=== PATIENT | male | born 1960 | race Asian ===

== ENCOUNTER 2020-07-12 15:15 | Outpatient (REF) | payer OTHER, SELFPAY | END 2020-07-12 15:16 | disposition home or self-care (01) | LOC: HO.LAB 15:15 | PROVIDERS: PCP Internal Medicine; Visit Provider Internal Medicine | DX: Z20.828 Contact with and (suspected) exposure to other viral communicable diseases (principal) | CPT/HCPCS: 87635 ==

== ENCOUNTER 2020-07-29 10:04 | Outpatient (REF) | payer OTHER, SELFPAY | END 2020-07-29 10:05 | disposition home or self-care (01) | LOC: HO.LAB 10:04 | PROVIDERS: Visit Provider Internal Medicine | DX: Z20.828 Contact with and (suspected) exposure to other viral communicable diseases (principal) | CPT/HCPCS: C9803; U0003 ==

== ENCOUNTER 2020-08-30 11:28 | Outpatient (REF) | payer OTHER, SELFPAY | END 2020-08-30 11:29 | disposition home or self-care (01) | LOC: HO.LAB 11:28 | PROVIDERS: Visit Provider Internal Medicine | DX: Z20.828 Contact with and (suspected) exposure to other viral communicable diseases (principal) | CPT/HCPCS: C9803; U0003 ==

== ENCOUNTER → 2023-11-08 11:57 | Outpatient (BNVA) | payer OTHER, SELFPAY | PROVIDERS: PCP Internal Medicine; Visit Provider Internal Medicine | DX: S83.92XA Sprain of unspecified site of left knee, initial encounter (principal); X50.1XXA Overexertion from prolonged static or awkward postures, initial encounter | CPT/HCPCS: 99202 ==

== ENCOUNTER → 2023-11-20 09:49 | Outpatient (BNVA) | payer OTHER, SELFPAY | PROVIDERS: PCP Internal Medicine; Visit Provider Internal Medicine | DX: S83.92XD Sprain of unspecified site of left knee, subsequent encounter (principal); X50.1XXD Overexertion from prolonged static or awkward postures, subsequent encounter | CPT/HCPCS: 73564; 99213 ==

== ENCOUNTER 2023-11-27 11:00 | Outpatient (RCR) | payer OTHER, SELFPAY ==
--- NOTE | 2023-11-22 12:30 | MHC.PT.EP ---
[facility] [place] Office [place] Office [place] Office [address] Cynthia Pulido [address] [phone] F: [phone] F: [phone] F: [phone] F: [phone] Physical Therapy Plan of Care Date of Evaluation: 11/22/23 Date of Surgery: N/A Diagnosis: left knee injury (RL) Assessment: pt is a 63 y/o male presenting to physical therapy w/ referring diagnosis of left knee injury. I suspect he has an MCL and/or LCL sprain(s). Impairments include pain, decreased range of motion, decreased strength, impaired functional mobility, impaired postural awareness, and altered ambulation mechanics. pt is a good candidate for skilled PT due to age, potential remediation of impairments, typical disease/condition progression and prognosis, comorbidities, and motivation. pt would benefit from skilled PT intervention to provide a tailored strengthening and stretching exercise program, functional training, gait training, postural re-training, neuromuscular re-education, modalities as needed for pain, equipment safety demonstration. Frequency and Duration: The patient will be seen 2x/wk for 4 wks Short Term Goals: pt will be I w/ HEP to promote self-management of condition. pt will improve L knee flexion by at least 10 degrees to promote ease in squatting. 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 pt will demo proper lifting mechanics w/o verbal cueing for 25-40# x5 reps to promote return to work-related tasks. Treatment Plan: Modalities to reduce pain, spasms and effusion. Manual therapy to restore motion and function. Therapeutic exercise to improve strength and flexibility. Neuromuscular re-education for posture and balance. Therapeutic activities to return to functional activities of daily living. Electronically signed by: Elaine Lao PT, DPT Please sign and return to therapist. Thank you for your referral.
--- NOTE | 2024-01-09 11:37 | MHC.PT.DC ---
[facility] [place] Office [place] Office [place] Office [address] Cynthia Pulido 140 [facility] [phone] F: [phone] F: [phone] F: [phone] F: [phone] Physical Therapy Discharge Report Diagnosis: left knee injury (RL) Date of Surgery: N/A Date of Evaluation: 11/22/23 Date of Discharge: 01/09/24 Treatments to Date: 2 Cancellations to Date: 8 No Shows to Date: 0 Discharge Status: Improved Function Independent with HEP Discharge Summary: The patient feels his knee pain is nearly completely resolved. He does also experience occasional stiffness but feels his exercise program addresses this. He would like to be discharged from this physical therapy plan of care. Electronically signed by: Elaine Lao PT, DPT Please sign and return to therapist. Thank you for your referral.
== END 2024-01-09 11:37 | disposition home or self-care (01) ==
LOC: HO.PT 11:00
PROVIDERS: PCP Internal Medicine; Visit Provider Internal Medicine
DX: M23.92 Unspecified internal derangement of left knee (principal)
CPT/HCPCS: 97110; 97161

== ENCOUNTER → 2023-12-04 08:36 | Outpatient (BNVA) | payer OTHER, SELFPAY | PROVIDERS: PCP Internal Medicine; Visit Provider Internal Medicine | DX: M23.92 Unspecified internal derangement of left knee (principal) | CPT/HCPCS: 99213 ==

== ENCOUNTER → 2023-12-13 10:06 | Outpatient (BNVA) | payer OTHER, SELFPAY | PROVIDERS: PCP Internal Medicine; Visit Provider Internal Medicine | DX: M23.92 Unspecified internal derangement of left knee (principal) | CPT/HCPCS: 99213 ==

== ENCOUNTER → 2024-01-06 08:32 | Outpatient (BNVA) | payer OTHER, SELFPAY | PROVIDERS: PCP Internal Medicine; Visit Provider Internal Medicine | DX: S83.92XD Sprain of unspecified site of left knee, subsequent encounter (principal); X50.1XXD Overexertion from prolonged static or awkward postures, subsequent encounter; M23.92 Unspecified internal derangement of left knee | CPT/HCPCS: 99213 ==

== ENCOUNTER → 2024-01-17 09:00 | Outpatient (BNVA) | payer OTHER, SELFPAY | PROVIDERS: PCP Internal Medicine; Visit Provider Internal Medicine | DX: S83.92XD Sprain of unspecified site of left knee, subsequent encounter (principal); X50.1XXD Overexertion from prolonged static or awkward postures, subsequent encounter; R22.42 Localized swelling, mass and lump, left lower limb | CPT/HCPCS: 99213 ==

== ENCOUNTER 2024-02-03 10:56 | Outpatient (AMB) | payer OTHER, SELFPAY ==
--- NOTE | 2024-02-03 11:06 | MHC.OFFVIS ---
Vital Signs 02/03/24 11:26 Height 6 ft Weight 165 lb BMI 22.4 Intake Visit Reasons: L Knee internal derangement DOI 11/07/23. W/C Intake Note: Foster is a 63 year old male who presents as a new patient with Left knee pain and giving way. The patient describes his knee pain as sharp and severe in nature. Most of the pain is along the medial and posterior aspects of his knee. The patient states that injured his knee while working on 11/07/2023. The patient states that he was getting out of a truck when he twisted his knee and had acute onset of pain. The patient has been going to formal physical therapy which aggravated his pain. He has failed the last 6 weeks of conservative treatment. He has tried Tylenol, anti-inflammatory medicines and a knee brace which gave him minimal relief. He states that his left knee will give out several times per day. 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 Physical Exam Vital Signs: BMI result Body Mass Index 22.4 Const Other: Well-nourished well-developed very friendly male awake alert and oriented x3 in no acute distress Extrem Other: Bilateral lower extremity examination shows good capillary refill, no skin lesions noted, normal sensation light touch Left knee examination shows a minimal effusion, minimal crepitus with range of motion, tenderness along his medial joint line, positive Justen's test, no instability Results Reviewed Results Reviewed: Standing full weight-bearing x-rays of the patient's left knee show mild joint space narrowing, no acute bony abnormalities Assessment & Plan Assessment & Plan (1) Left knee pain: Code(s): M25.562 - Pain in left knee Category: Medical Plan Mr. Rogers presents with left knee pain and mechanical symptoms most likely due to a tear of his medial meniscus. Thus, I will send the patient for an MRI of his left knee for further evaluation. I will see him back once the MRI is completed to discuss the findings and treatment options. Feel free to call me at any time should questions regarding his orthopedic management arise. Thank you very much for asking me to see this very friendly patient. I spent 22 minutes in reviewing the patient's records and imaging studies, seeing the patient and documenting in the medical record. Orders: Orders XR knee LT 3V Today M25.562 - Pain in left knee MR knee LT wo con Today M25.562 - Pain in left knee Coding Level of Care Code New Pt Level 3 (76320) Diagnoses Left knee pain M25.562
[2024-02-03 11:26] VITALS: BMI 22.4
== END 2024-02-03 11:43 | disposition home or self-care (01) ==
PROVIDERS: PCP Internal Medicine; Visit Provider Orthopaedic Surgery
DX: M25.562 Pain in left knee (principal); Z04.2 Encounter for examination and observation following work accident
CPT/HCPCS: 99203

== ENCOUNTER 2024-02-03 10:56 | Outpatient (REF) | payer OTHER, SELFPAY ==
--- NOTE | ~2024-02-03 | XR_ITS ---
EXAMINATION: XR KNEE, LEFT CLINICAL INFORMATION: Pain in the left knee COMPARISON: X-ray the left knee November 2023 TECHNIQUE: Four views of the left knee. FINDINGS: Medial compartment small marginal osteophytes without joint space narrowing indicative of mild osteoarthritis. Lateral compartment and patellofemoral compartment unremarkable. There is no effusion. Surrounding bone and soft tissues unremarkable. XR/XR knee LT 3V IMPRESSION: Mild osteoarthritis of the left knee.
== END 2024-02-03 10:57 | disposition home or self-care (01) ==
LOC: HO.HOSX 10:56
PROVIDERS: PCP Internal Medicine; Visit Provider Orthopaedic Surgery
DX: M25.562 Pain in left knee (principal)
CPT/HCPCS: 73562; 99202

== ENCOUNTER 2024-02-25 11:20 | Outpatient (AMB) | payer OTHER, SELFPAY ==
--- NOTE | 2024-02-25 11:39 | MHC.OFFVIS ---
Vital Signs 02/25/24 11:45 Height 6 ft Weight 165 lb BMI 22.4 Intake Visit Reasons: MRI Review - Left Knee Rayus Intake Note: Foster is a 63 year old male who presents with Left knee pain and giving way. The patient describes his knee pain as sharp and severe in nature. Most of the pain is along the medial and posterior aspects of his knee. The patient states that injured his knee while working on 11/07/2023. The patient states that he was getting out of a truck when he twisted his knee and had acute onset of pain. The patient has been going to formal physical therapy which aggravated his pain. He has failed the last 6 weeks of conservative treatment. He has tried Tylenol, anti-inflammatory medicines and a knee brace which gave him minimal relief. He states that his left knee will give out several times per day. 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 Physical Exam Vital Signs: BMI result Body Mass Index 22.4 Const Other: Well-nourished well-developed very friendly male awake alert and oriented x3 in no acute distress Extrem Other: Bilateral lower extremity examination shows good capillary refill, no skin lesions noted, normal sensation light touch Left knee examination shows a minimal effusion, minimal crepitus with range of motion, tenderness along his medial joint line, positive Justen's test, no instability Results Reviewed Results Reviewed: Standing full weight-bearing x-rays of the patient's left knee shows mild joint space narrowing, no acute bony abnormalities MRI of the patient's left knee shows mild degenerative changes as well as a tear of the medial meniscus Assessment & Plan Assessment & Plan (1) Tear of medial meniscus of left knee: Code(s): S83.242A - Other tear of medial meniscus, current injury, left knee, initial encounter Category: Medical Plan Mr. Rogers presents with left knee pain and mechanical symptoms due to a tear of his medial meniscus. I had a lengthy discussion with the patient regarding the treatment options. At this point he has failed continued non operative treatments. The risks and benefits of left knee arthroscopic surgery were discussed at length with the patient. The patient wishes to proceed with surgery. Surgery will most likely involve left knee diagnostic arthroscopy with arthroscopic partial medial meniscectomy. The patient does understand that he may not get 100% relief of his symptoms depending on the severity of his degenerative changes. He will be scheduled for next available date. He will follow-up as instructed. Feel free to call me at any time should questions regarding his orthopedic management arise. I spent 22 minutes in reviewing the patient's records and imaging studies, seeing the patient and documenting in the medical record. Coding Level of Care Code Est Pt Level 3 (41809) Diagnoses Tear of medial meniscus of left knee S83.242A
[2024-02-25 11:45] VITALS: BMI 22.4
== END 2024-02-25 12:01 | disposition home or self-care (01) ==
PROVIDERS: PCP Internal Medicine; Visit Provider Orthopaedic Surgery
DX: S83.242A Other tear of medial meniscus, current injury, left knee, initial encounter (principal)
CPT/HCPCS: 99214

== ENCOUNTER → 2024-02-25 11:20 | Outpatient (BNVA) | payer OTHER, SELFPAY | PROVIDERS: PCP Internal Medicine; Visit Provider Orthopaedic Surgery | DX: M25.562 Pain in left knee (principal); S83.242D Other tear of medial meniscus, current injury, left knee, subsequent encounter; X58.XXXD Exposure to other specified factors, subsequent encounter | CPT/HCPCS: 99212 ==

== ENCOUNTER 2024-03-06 09:44 | Day surgery (SDC) | payer OTHER, SELFPAY ==
--- NOTE | 2024-03-04 10:14 | HO.ANESPROP2 ---
Documented by User: Noemí Dc NP 03/04/24 10:15 HPI - Anesthesia Eval Consult details Narrative: 63yo M for Left Knee Arthroscopy with partial medial meniscectomy PMFSH Active Problems Active Problems: All Active Problems Tear of medial meniscus of left knee (Acute) Left knee pain (Acute) Left knee sprain (Acute ~11/07/23) Past Medical History Medical History Hypercholesteremia GERD (gastroesophageal reflux disease) Surgical History Surgical History Hx of prostatectomy Hx of shoulder surgery Hx of shoulder surgery History of ankle surgery Social History Social History Patient Tobacco Use Status: Never used Tobacco Are you DNR?: No Advance Directives: No Advance Directives Information Provided: Yes Nutrition Risks: No Nutritional Risk Current occupational status: employed Current occupation: [employer] Allergies Allergy/AdvReac Type Severity Reaction Status Date / Time No Known Allergies Allergy Verified 03/06/24 11:00 Home Medications ?Medication ?Instructions ?Recorded ?Confirmed ?Last Taken ?Type atorvastatin 10 mg tablet 10 mg PO BEDTIME 02/03/24 03/06/24 Unknown History omeprazole 40 mg capsule,delayed 20 mg PO BID 02/25/24 03/06/24 Unknown History release Assessment and Plan Assessment Anesthesia Assessment: Chart Reviewed Documented by User: Karen Mace MD 03/06/24 11:19 PMFSH Past Medical History Medical History Hypercholesteremia GERD (gastroesophageal reflux disease) Family History Family history of problems with anesthesia: No Surgical History Surgical History Hx of prostatectomy Hx of shoulder surgery Hx of shoulder surgery History of ankle surgery History of Problems with Anesthesia: No Social History Social History Patient Tobacco Use Status: Never used Tobacco Are you DNR?: No Advance Directives: No Advance Directives Information Provided: Yes Nutrition Risks: No Nutritional Risk Current occupational status: employed Current occupation: [employer] Allergies Allergy/AdvReac Type Severity Reaction Status Date / Time No Known Allergies Allergy Verified 03/06/24 11:00 Home Medications ?Medication ?Instructions ?Recorded ?Confirmed ?Last Taken ?Type atorvastatin 10 mg tablet 10 mg PO BEDTIME 02/03/24 03/06/24 Unknown History omeprazole 40 mg capsule,delayed 20 mg PO BID 02/25/24 03/06/24 Unknown History release Exam Airway Mallampati Class: II TM Dist: >3cm Neck ROM: Full Heart: rrr Lungs: cta Assessment and Plan Assessment Anesthesia Assessment: Anesthesia Plan Discussed Final Anesthetic Review Family History of Problems with Anesthesia: No History of Problems with Anesthesia: No NPO: Yes ASA Class: II Final Preanesthetic Review: No Changes in Pt Med Stat, Meds/Allgs Chart Reviewed, Consent Obtained/Reviewed and Anes Risks/Benef Reviewed Patient Risk: Low Procedure Risk: Low Anesthetic Plan Anesthetic Plan: GA Disposition: Standard PACU
[2024-03-06] VITALS (11 sets, daily range): BP systolic 131–148; BP diastolic 76–85; PULSE 51–68; RESP 12–18; TEMP 36.8; O2SAT 91–100; BMI 22.8
[2024-03-06] MEDS: Lactated Ringers 1,000 ML 100 ML IVCONT (10:32)
--- NOTE | 2024-03-06 12:23 | P.BOP_ITS ---
Brief Operative Note Date of Service: 03/06/24 Pre-op diagnosis: Left knee medial meniscus tear, left knee degenerative joint disease Post-op diagnosis: same Procedure: Left knee diagnostic arthroscopy with left knee arthroscopic partial medial meniscectomy, left knee arthroscopic chondroplasty of the undersurface of the patella as well as the medial femoral condyle Implants: none Surgeon: Errol Gage MD Anesthesia: GLMA Was an Wait[employer] used for this Procedure?: No Estimated blood loss (mL): 10 Pathology: none sent Condition: stable Disposition: PACU
--- NOTE | 2024-03-06 12:24 | P.OP_ITS ---
Operative Note Operative Note Date of Service: 03/06/24 Narrative: After the patient was identified as Foster Rogers and his left knee was initialed by myself they were brought to the operating room where general anesthesia was induced by the anesthesiologist in routine fashion. The patient was given 2 g of IV Ancef preoperatively for infection prophylaxis. The patient's left lower extremity was prepped and draped in sterile fashion. A formal time-out was completed. Marcaine was injected into the planned incision sites as well as the patient's left knee joint. A #11 scalpel blade was used to make an anterolateral portal 1 cm proximal to the joint line and 1 cm lateral to the pa tellar tendon. Blunt trocar technique was used to enter the suprapatellar pouch with the knee in extension. Diagnostic arthroscopy showed multiple bands of thickened plica which would be excised at the end of the procedure. There were no loose bodies or abnormalities found in either the medial or lateral gutters. The articular surface of the patella showed diffuse grades 1 and 2 degenerative changes. The trochlear groove articular surface showed diffuse grade 1 degenerative changes. The patient's knee was flexed to 45 degrees and a valgus force was placed upon it. The medial compartment was entered. An anteromedial portal was made 1 cm proximal to the joint line and 1 cm medial to the patellar tendon. Probing of the medial meniscus showed a radial tear of the posterior horn. A partial medial meniscectomy was performed using the arthroscopic shaver. Following the partial meniscectomy the remainder of the meniscus tissue was stable. There were diffuse grade 2 degenerative changes of the medial femoral condyle as well as grade 1 degenerative changes of the medial tibial plateau. The articular surface of the medial femoral condyle was then made smooth using the arthroscopic shaver. The articular surface of the medial tibial plateau was already smooth so no chondroplasty was indicated. The patient's knee was placed into a neutral position. There was no injury to the anterior cruciate ligament. The patient's knee was then placed in the figure of 4 position and the lateral compartment was entered. There was no evidence of lateral meniscus tearing. There were minimal degenerative changes of the lateral femoral condyle and lateral tibial plateau. The patient's knee was once again brought into extension and the suprapatellar pouch was entered. The arthroscopic shaver and the ArthroCare Wand were used to excise the thickened bands of plica. The undersurface of the patella was then made smooth using the arthroscopic shaver. The articular surface of the trochlear groove was already smooth so no chondroplasty was indicated. The knee joint was irrigated and then drained. All arthroscopic instruments were removed. The 2 portals were closed with 3-0 nylon interrupted suture. The knee joint was injected with Marcaine. Dry sterile dressing and Carl bandages were placed over the patient's knee. The patient was awoken and extubated in the operating room. The patient was transferred to the recovery room in stable condition.
[2024-03-06] MEDS: fentaNYL citrate/PF 100 MCG/2 ML VIAL 25 MCG IVPUSH ×4 (12:27→12:42)
[2024-03-06] MEDS: cefTRIAXone sodium 1 GM in 0.9 % Sodium Chloride 50 ML IV (12:47)
== END 2024-03-06 13:30 | disposition home or self-care (01) ==
PROVIDERS: PCP Internal Medicine; Visit Provider Orthopaedic Surgery
PROC: (CPT 29870; principal; 2024-03-06 11:40)
DX: S83.242A Other tear of medial meniscus, current injury, left knee, initial encounter (principal); M17.12 Unilateral primary osteoarthritis, left knee; M67.52 Plica syndrome, left knee; X50.1XXA Overexertion from prolonged static or awkward postures, initial encounter; Y93.89 Activity, other specified; Y92.69 Other specified industrial and construction area as the place of occurrence of the external cause; Y99.0 Civilian activity done for income or pay; Z79.899 Other long term (current) drug therapy; Z98.890 Other specified postprocedural states
CPT/HCPCS: 29881; J0131; J0171; J0690; J0696; J1100; J1885; J2250; J2405; J2704; J2795; J3010

== ENCOUNTER → 2024-03-06 09:44 | Outpatient (BNV) | payer OTHER, SELFPAY | PROVIDERS: PCP Internal Medicine; Visit Provider Orthopaedic Surgery | DX: S83.242A Other tear of medial meniscus, current injury, left knee, initial encounter (principal) | CPT/HCPCS: 29881 ==

== ENCOUNTER 2024-03-18 08:13 | Outpatient (AMB) | payer OTHER, SELFPAY ==
--- NOTE | 2024-03-18 08:17 | A.OFFVIS_ITS ---
Intake Visit Reasons: PO LT knee 03/06/24 Intake Note: Foster is a 63 year old male who presents to the office today for a PO LT knee 03/06/24. Pt states he is still having some soreness and some swelling but states the swelling is subsiding. Sutures removed in office. He has no longer taking narcotics. He continues to progress to activities as tolerated. 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 Rogers is doing well after undergoing left knee arthroscopic surgery on 03/06/2024. His sutures were removed. Will gradually progress to activities as tolerated. I did clear the patient to return to work. He will contact me prior to his follow-up appointment in 2 months should any questions or concerns arise. Feel free to call me at any time should questions regarding his orthopedic management arise. Coding Level of Care Code Global (63730) Diagnoses Left knee pain M25.562
== END 2024-03-18 08:46 | disposition home or self-care (01) ==
PROVIDERS: PCP Internal Medicine; Visit Provider Orthopaedic Surgery
DX: M25.562 Pain in left knee (principal)
CPT/HCPCS: 99024

== ENCOUNTER → 2024-03-18 08:13 | Outpatient (BNVA) | payer OTHER, SELFPAY | PROVIDERS: PCP Internal Medicine; Visit Provider Orthopaedic Surgery | DX: Z47.89 Encounter for other orthopedic aftercare (principal) | CPT/HCPCS: 99212 ==

== ENCOUNTER 2024-05-21 08:36 | Outpatient (AMB) | payer OTHER, SELFPAY ==
--- NOTE | 2024-05-21 08:40 | A.OFFVIS_ITS ---
Intake Visit Reasons: PO LT knee 03/06/24 Intake Note: Foster is a 63 year old male who presents to the office today for a LT knee 03/06/24 follow up. The patient reports mild intermittent discomfort in his left knee. He denies any fevers or chills. Takes Tylenol each night for his discomfort. He does wear a knee brace which helps with his discomfort. 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 Rogers continues to do well after undergoing left knee arthroscopic surgery on 03/06/2024. He will continue with his home exercise program. I discussed with the patient the fact that his discomfort should continue to improve over the next few months. He will contact me prior to his follow-up appointment in 3 months should any questions or concerns arise. Feel free to call me at any time should questions regarding his orthopedic management arise. Coding Level of Care Code Global (91930) Diagnoses Left knee pain M25.562
== END 2024-05-21 08:55 | disposition home or self-care (01) ==
PROVIDERS: PCP Internal Medicine; Visit Provider Orthopaedic Surgery
DX: M25.562 Pain in left knee (principal)
CPT/HCPCS: 99024

== ENCOUNTER → 2024-05-21 08:36 | Outpatient (BNVA) | payer OTHER, SELFPAY | PROVIDERS: PCP Internal Medicine; Visit Provider Orthopaedic Surgery | DX: M25.562 Pain in left knee (principal) | CPT/HCPCS: 99212 ==

== ENCOUNTER → 2024-06-26 07:28 | Outpatient (BNVA) | payer OTHER, SELFPAY | PROVIDERS: PCP Internal Medicine; Visit Provider Registered Nurse | DX: Z02.79 Encounter for issue of other medical certificate (principal) ==

== ENCOUNTER 2024-08-20 08:14 | Outpatient (AMB) | payer OTHER, SELFPAY ==
--- NOTE | 2024-08-20 08:16 | MHC.OFFVIS ---
Vital Signs 08/20/24 08:17 Height 6 ft Weight 165 lb BMI 22.4 Intake Visit Reasons: OV: LT knee 03/06/24 Intake Note: Foster is a 64 year old male who presents today for a follow up visit of his left knee pain s/p Left Knee 03/06/24. He reports mild intermittent discomfort in his left knee. He continues with his home exercise program. He does not take any medicines for his discomfort. 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 Physical Exam Vital Signs: BMI result Body Mass Index 22.4 Const Other: Well-nourished well-developed very friendly male awake alert and oriented x3 in no acute distress Extrem Other: Bilateral lower extremity examination shows good capillary refill, no skin lesions noted, normal sensation light touch Left knee examination shows that the surgical incisions are well healed, no erythema, minimal discomfort with range of motion, minimal crepitus with range of motion, no instability Assessment & Plan Assessment & Plan (1) Left knee pain: Code(s): M25.562 - Pain in left knee Category: Medical Plan Mr. Rogers continues to do very well after undergoing left knee arthroscopic surgery on 03/06/2024. He will continue with his home exercise program. He will follow up with me on an as-needed basis should his symptoms worsen in any way. Feel free to call me at any time should questions regarding his orthopedic management arise. I spent 22 minutes in reviewing the patient's records and imaging studies, seeing the patient and documenting in the medical record. Coding Level of Care Code Est Pt Level 3 (54626) Complex EM visit Add On G2211 Diagnoses Left knee pain M25.562
[2024-08-20 08:17] VITALS: BMI 22.4
== END 2024-08-20 08:28 | disposition home or self-care (01) ==
PROVIDERS: PCP Internal Medicine; Visit Provider Orthopaedic Surgery
DX: M25.562 Pain in left knee (principal)
CPT/HCPCS: 99213; G2211

== ENCOUNTER → 2024-08-20 08:14 | Outpatient (BNVA) | payer OTHER, SELFPAY | PROVIDERS: PCP Internal Medicine; Visit Provider Orthopaedic Surgery | DX: M25.562 Pain in left knee (principal); Z98.890 Other specified postprocedural states | CPT/HCPCS: 99212 ==

== ENCOUNTER 2025-07-23 08:10 | Outpatient (REF) | payer OTHER, SELFPAY ==
--- NOTE | ~2025-07-23 | XR_ITS ---
EXAMINATION: XR HAND 3 VIEWS BILATERAL HISTORY: M79.643 - Pain in unspecified hand COMPARISON: There are no prior studies available for comparison. FINDINGS: Six views of the bilateral hands are submitted. Osseous mineralization is normal. There is an old healed fracture of the 5th metacarpal of the left hand. There is no acute fracture or dislocation. There is severe osteoarthritis of the 1st carpometacarpal joint of the right hand and moderate osteoarthritis of the 1st carpometacarpal joint of the left hand, with joint space narrowing and osteophyte formation. The remaining joint spaces are preserved. There is a tiny metallic foreign body in the dorsal soft tissues between the 3rd and 4th metacarpal heads of the left hand. XR/XR Hand Bilat min 3v IMPRESSION: Osteoarthritis of the 1st carpometacarpal joints of both hands as described. Electronically signed by: Clement Hollins MD 07/23/2025 08:42 AM [facility]
== END 2025-07-23 08:11 | disposition home or self-care (01) ==
LOC: HO.HOSX 08:10
DX: M18.0 Bilateral primary osteoarthritis of first carpometacarpal joints (principal)
CPT/HCPCS: 20605; 73130; 99212; J1100; J2003

== ENCOUNTER → 2025-07-23 08:15 | Outpatient (BNV) | payer OTHER, SELFPAY | PROVIDERS: Visit Provider Radiology Diagnostic Radiology | DX: M19.041 Primary osteoarthritis, right hand (principal); M19.042 Primary osteoarthritis, left hand | CPT/HCPCS: 73130 ==

== ENCOUNTER 2025-07-23 08:16 | Outpatient (AMB) | payer OTHER, SELFPAY ==
--- NOTE | 2025-07-23 08:18 | A.OFFVIS_ITS ---
Vital Signs 07/23/25 08:24 Height 6 ft Weight 165 lb BMI 22.4 Handedness Left Intake Visit Reasons: New problem-Bilat thumb pain Intake Note: Foster is a 65 year old Left hand dominant male who presents today for a New Problem visit with complaints of bilateral thumb pain. Patient reports that he has had ongoing pain in bilateral thumbs for quite some time now, but it has become increasingly painful of the last year. 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 Pain is worse at night and will keep him up. Occasionally he will feel a sharp stabbing pain in the thumb. He takes Ibuprofen at night to help reduce pain in order to sleep, which does help. At this time he is not interested in any surgeries, but is open to injections. Of note, he is also a patient of Dr. Porter - who will be treating him for his right shoulder pain. Allergies No Known Allergies Allergy (Verified 07/23/25 08:31) HPI HPI New problem-Bilat thumb pain: Details: Foster is a 65 year old Left hand dominant male who presents today for a New Problem visit with complaints of bilateral thumb pain. Patient reports that he has had ongoing pain in bilateral thumbs for quite some time now, but it has become increasingly painful of the last year. 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 Pain is worse at night and will keep him up. Occasionally he will feel a sharp stabbing pain in the thumb. He takes Ibuprofen at night to help reduce pain in order to sleep, which does help. At this time he is not interested in any surgeries, but is open to injections. Of note, he is also a patient of Dr. Porter - who will be treating him for his right shoulder pain. 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 Neuro: Normal sensation of the tips of all digits of the bilateral hand at this time Vascular: Cap refill brisk Pain: Tenderness to palpation of basal joints of bilateral hands Positive CMC grind of bilateral thumbs No tenderness to palpation of 1st dorsal compartment MCP joints of bilateral thumbs ROM: Patient is able to make a closed fist and extend all hands fully Skin: No lacerations or abrasions. General: No ecchymosis, erythema, or evidence of infection. Psych: Appears grossly normal Affect normal Attitude cooperative Office Procedures Joint Inj/Aspir; Non-Pain Clin Joint Injection/Drain Prep: site was prepped using aseptic technique and injection warnings given Procedure: The patient tolerated the procedure well and there was some relief with the local anesthesia Elbows, Wrist, Hands, Hand injection Medium joint 17812: Left Hand Coding Procedure code (CPT) selection complete Results Reviewed Results Reviewed: X-rays obtained in the office today and independently reviewed by me, Ameya Carroll PA-C, demonstrate bilateral moderate to severe basal joint arthritis. Assessment & Plan Assessment & Plan (1) Arthritis of carpometacarpal (CMC) joint of both thumbs: Code(s): M18.0 - Bilateral primary osteoarthritis of first carpometacarpal joints Category: Medical Plan 1. Left basal joint arthritis Patient is educated about this condition Patient is educated about the typical treatment course Patient would like to proceed with steroid injection at this time The risks and benefits of a steroid injection including but not limited to risk of damage to blood vessels, nerve, tendon, infection, skin bleaching, persistent or worsening pain, and failure to improve symptoms were discussed with the patient and they wish to proceed with the steroid injection. Once consent was obtained the skin over the dorsum of the left basal joint was sterilely prepped. The joint was then injected with a combination of 40 mg dexamethasone l and 1% plain Lidocaine. The patient appears to have tolerated the procedure well and with no complications. He had good early relief before leaving clinic today. He knows that they may not have another steroid injection into this joint for least 4 months. Patient will follow-up in 2-3 weeks for right basal joint injection Orders: Orders XR Hand Bilat min 3v Today M79.643 - Pain in unspecified hand Coding Level of Care Code Est Pt Level 3 (43421) Diagnoses Arthritis of carpometacarpal (CMC) joint of both thumbs M18.0 CPT Codes Elbows, Wrist, Hands, - Hand injection Medium joint 04288: Left Hand ([id number])
[2025-07-23 08:24] VITALS: BMI 22.4
--- OUTSIDE RECORDS SUMMARY | 2025-07-23 08:29 | XMS_ITS | Encounter Summary ---
Author Organization [facility] Address [address] [place] [address] Care Team Providers Care Emergency Care Tech Name Role Phone Terry Nguyen MD Primary Care Provider [phone] Encounter Details Date Type Department Care Team (Late st Contact Info) Description 09/22/2024 Lab Requisition [facility] - Main Lab [address] [facility] [place] [address] Abram Magana MD [address] [facility] [address] [place] [phone] Malignant neoplasm of prostate (CMS/HCC V24, CMS/HCC V28) Social History Tobacco Use Types Packs/Day Years Used Date Smoking Tobacco: Former Cigarettes Smokeless Tobacco: Never Alcohol Use Standard Drinks/Week Comments No 0 (1 standard drink = 0.6 oz pur e alcohol) Sex and Gender Information Value Date Recorded Sex Assigned at Not on file Legal Sex Male 2:59 PM EST Gender Identity Not on file Sexual Orientation Not on file documented as of this encounter Plan of Treatment Upcoming Encounters Date Type Department Care Team (Late st Contact Info) Description 08/24/2025 8:15 AM EST Office Visit Orthopedic Surgery - [place] [address] 175 [facility] 250 [place] [address] Payam Sam, DPM 175 [facility] [address] [place] [address] 09/23/2025 8:50 AM EST Office Visit Gastroenterology - [address] [place] 299 [facility] [address] [place] [phone] Aydee Shannon PA [address] [address] 12/27/2025 9:30 AM EDT Office Visit Adult Medicine [facility] [address] [place], [place] [phone] Terry Nguyen MD [address] [place], [place] documented as of this encounter Procedures Procedure Name Priority Date/Time Associated Diagnosis Comments PROSTATE SPECIFIC ANTIGEN DIAGNOSTIC Routine 09/22/2024 10:53 AM EST Malignant neoplasm of prostate (CMS/HCC) documented in this encounter Results * Prostate specific antigen diagnostic (09/22/2024 10:53 AM EST) PSA <0.06 0.00 - 4.00 ng/mL LAB CHEMISTRY METHOD 09/22/2024 4:40 PM EST [facility] Blood Venous blood specimen / Unknown 09/22/2024 10:53 AM EST 09/22/2024 1:18 PM EST Narrative [facility] - 09/22/2024 4:40 PM EST The Siemens Advia Centaur Chemiluminescent Immunoassay is used. Results obtained with different assay methods or kits cannot be used interchangeably. Results cannot be interpreted as absolute evidence of the presence or absence of malignant disease. us Abram Magana MD LAB BLOOD ORDERABLES Final Resu lt [facility] [address] [place] [address], [place] [phone] documented in this encounter Visit Diagnoses Diagnosis Malignant neoplasm of prostate (CMS/HCC V24, CMS/HCC V28) Malignant neoplasm of prostate documented in this encounter Care Teams Emergency Care Tech Relationship Specialty Start Date End Date Terry Nguyen MD [address] [place] [address] PCP - General Internal Medicine 12/01/15 documented as of this encounter
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
--- OUTSIDE RECORDS SUMMARY | 2025-07-23 08:29 | XMS_ITS | Encounter Summary ---
Author Organization [facility] Address [address] [place] [address] Care Team Providers Care Metal Hanging Supervisor Name Role Phone Terry Nguyen MD Primary Care Provider [phone] Encounter Details Date Type Department Care Team (Late Contact Info) Description 06/21/2025 Telephone Adult Medicine [address] [phone] Marylu De La Cruz MA Social History Tobacco Use Types Packs/Day Years [...] Encounters Date Type Department Care Team (Late Contact Info) Description 08/24/2025 8:15 AM EST Office Visit Orthopedic Surgery - [place] [address] [phone] Payam Sam DPBobby [address] [phone] 09/23/2025 8:50 AM EST Office Visit Gastroenterology - [address] [place] [address] [phone] Aydee Shannon PA [address] [address] 12/27/2025 9:30 AM EDT Office Visit Adult Medicine [address] [phone] Terry Nguyen MD [address] [place] [address] documented as of this encounter Visit Diagnoses Not on filedocumented in this encounter Care Teams Metal Hanging Supervisor Relationship Specialty Start Date End Date Terry Nguyen MD [address] [place] [address] PCP - General Internal Medicine 12/01/15 documented as of this encounter
--- OUTSIDE RECORDS SUMMARY | 2025-07-23 08:29 | XMS_ITS ---
Author Name [facility] Organization Unknown Encounters Encounter Type Encounter Reason Primary Diagnosis Location Date Ambulatory [facility] [place] 06/12/2025 Care Team Organization Name Specialty Phone Email Start Date End Da te [facility] Primary Care 07/24/2022
== END 2025-07-23 09:05 | disposition home or self-care (01) ==
PROVIDERS: PCP Internal Medicine
DX: M18.0 Bilateral primary osteoarthritis of first carpometacarpal joints (principal)
CPT/HCPCS: 20600; 20605; 99213

== ENCOUNTER 2025-08-04 07:34 | Outpatient (AMB) | payer BC, SELFPAY ==
--- NOTE | 2025-08-04 07:46 | MHC.OFFVIS ---
Vital Signs 08/04/25 07:53 Height 6 ft Weight 164 lb BMI 22.2 Handedness Left Intake Visit Reasons: Right shoulder pain and weakness Intake Note: Foster is a 65 year old male who presents with complaints of progressively worsening right shoulder pain and weakness. He describes his pain as sharp and severe in nature. Most of the pain is along the lateral aspect of his right shoulder. His symptoms have gotten worse over the last year. He has failed the last 6 weeks of conservative treatment which has included Tylenol, anti-inflammatory medicines, a home exercise program and physical therapy exercises. The patient reports difficulty lifting his right hand above shoulder height. 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 Allergies No Known Allergies Allergy (Verified 08/04/25 07:47) Medication List - Last Reconciled 08/04/25 by Errol Gage MD atorvastatin 10 mg PO BEDTIME omeprazole 20 mg PO BID PFSH Medical History Hypercholesteremia GERD (gastroesophageal reflux disease) Surgical History Hx of prostatectomy Hx of shoulder surgery Hx of shoulder surgery History of ankle surgery Social History Patient Tobacco Use Status: Never used Tobacco Current occupational status: employed Current occupation: [employer] Physical Exam Vital Signs: BMI result Body Mass Index 22.2 Const Other: Well-nourished well-developed very friendly male awake alert and oriented x3 in no acute distress Extrem Other: Right shoulder examination shows decreased range of motion when compared to his left shoulder, 4/5 strength with supraspinatus testing, positive impingement signs, tenderness over his acromioclavicular joint, no instability Results Reviewed Results Reviewed: X-rays of the patient's right shoulder taken today show severe acromioclavicular joint narrowing, a type 2 acromion, no acute bony abnormalities Assessment & Plan Assessment & Plan (1) Rotator cuff syndrome of right shoulder: Code(s): M75.101 - Unspecified rotator cuff tear or rupture of right shoulder, not specified as traumatic Category: Medical Plan Mr. Rogers presents with right shoulder pain and weakness due to impingement syndrome and possible rotator cuff tearing. Thus, I will send the patient for an MRI of his right shoulder for further evaluation. I will see him back once the MRI is completed to discuss the findings and treatment options. Feel free to call me at any time should questions regarding his orthopedic management arise. I spent 20 minutes in reviewing the patient's records and imaging studies, seeing the patient and documenting in the medical record. Orders: Orders XR shoulder RT min 2V Today M25.511 - Pain in right shoulder MR shoulder RT wo con 08/05/25 M75.101 - Unspecified rotator cuff tear or rupture of right shoulder, not specified as traumatic Coding Level of Care Code Est Pt Level 3 (07378) Complex EM visit Add On G2211 Diagnoses Rotator cuff syndrome of right shoulder M75.101
[2025-08-04 07:53] VITALS: BMI 22.2
--- OUTSIDE RECORDS SUMMARY | 2025-08-04 15:06 | XMS_ITS | Clinical Summary ---
Author Organization [facility] [address] [facility] Address [address] [place] [address] Phone Care Team Providers Care Part Time Name Role Phone Terry Nguyen MD Primary Care Provider [phone] Allergies No known active allergies Medications omeprazole [...] time each day. 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 Encounters Date Type Department Care Team Description 07/12/2025 10:45 AM EDT Consult Orthopedic Surgery - [place] [address] [place] [address] 250 [place] [phone] Payam Sam, DPM Metatarsalgia of right foot (Primary Dx); Acquired hallux valgus of right foot; Acquired hammer toe of right foot; Tendinitis of right ankle 06/21/2025 Telephone Adult Medicine [address] [phone] Marylu De La Cruz [place] 06/08/2025 Telephone Adult Medicine [address] [phone] Terry Nguyen MD 06/08/2025 Telephone [facility] [address] [place] [phone] Terry Nguyen MD 06/07/2025 10:15 AM EDT - 06/07/2025 11:59 PM EDT Hospital Encounter [address] [phone] Chronic right shoulder pain Discharge Disposition: Home or Self Care 06/07/2025 10:15 AM EDT - 06/07/2025 11:59 PM EDT Hospital Encounter [address] [phone] Toe deformity, right Discharge Disposition: Home or Self Care 06/07/2025 10:00 AM EDT Office Visit Adult Medicine [address] [phone] Terry Nguyen MD Pure hypercholesterolemia (Primary Dx); Encounter for long-term (current) use of medications; Chronic right shoulder pain; Toe deformity, right; Prostate cancer ([facility] V24, [facility] V28) from Last 3 Months Immunizations Immunization [...] Date Site/Laterality Comments OTHER SURGICAL HISTORY PROCEDURE: CT ARTHRS AID RPR LES/TALAR DOME FX/TIBL PLAFOND [...] Status Comments Daughter Alive Father (Age 70's) Alzheime rs Mother Alive Hypertension, D ISAURA Sister [...] AM EST Office Visit Orthopedic Surgery - [place] [address] [phone] Payam Sam, DPM [address] [phone] 09/23/2025 8:50 AM EST Office Visit Gastroenterology - [address] [phone] Aydee Shannon PA [address] [address] 12/27/2025 9:30 AM EDT Office Visit Adult Medicine [address] [phone] Terry Nguyen MD [address] [place] [address] Health Maintenance Due Date Last Done Comments Abdominal Aortic Aneurysm (AAA) Screen 08/25/2022 Hepatitis C Screening 08/25/2022 Social Influencers of Health Screening 08/25/2022 Falls Risk Assessment 2023 Depression Screening 09/16/2024 COVID-19 Vaccine (6 - Mixed Product risk season) 2025 05/24/2025, 05/17/2024, 07/11/2021, Additional history exists DTaP,Tdap,and Td Vaccines (3 - Td or Tdap) 08/03/2029 08/03/2019, 08/03/2008 Cholesterol Screening (Lipid Panel) 06/07/2030 06/07/2025, 01/29/2025, 07/17/2024, Additional history exists Colorectal Cancer Screening: Colonoscopy 03/13/2032 03/13/2022 RSV Immunization Adult Patients (1 - 1-dose 75+ series) 2033 Zoster Vaccines Completed 05/22/2019, 03/23/2019 Pneumococcal Vaccine: 50+ Years Completed 07/17/2024 Influenza Vaccine Completed 05/24/2025, , 06/11/2023, Additional [...] LAB CHEMISTRY METHOD 06/07/2025 1:03 PM EDT [facility] Triglycerides 58 0 - 150 mg/dL LAB CHEMISTRY METHOD 06/07/2025 1:03 PM EDT [facility] HDL 77 >=40 mg/dL LAB CHEMISTRY METHOD 06/07/2025 1:03 PM T [facility] LDL Calculated 123(H) 0 - 100 mg/dL LAB CHEMISTRY METHOD 06/07/2025 1:03 PM EDT [facility] Comment:Estimated LDL Calcul ated using equation: Total cholesterol - HDL cholesterol - (Triglycerides/5) VLDL Cholesterol Derrick 11.6 mg/dL LAB CHEMISTRY METHOD 06/07/2025 1:03 PM EDT [facility] Non HDL Chol. (LDL+VLDL) 135 <145 mg/dL LAB CHEMISTRY METHOD 06/07/2025 1:03 PM T [facility] Chol/HDL Ratio 2.8 0.0 - 4.4 LAB CHEMISTRY METHOD 06/07/2025 1:03 PM T [facility] Blood Venous blood specimen / Unknown Venipuncture / Unknown 06/07/2025 10:35 AM EDT 06/07/2025 10:35 AM EDT us Terry Nguyen MD LAB BLOOD ORDERABLES Final Resu lt [facility] 299 [place] [address], * Comprehensive metabolic panel (06/07/2025 10:35 AM EDT) Sodium 139 133 - 145 mmol/L LAB CHEMISTRY METHOD 06/07/2025 1:03 PM [facility] Potassium 4.3 3.5 - 5.5 mmol/L LAB CHEMISTRY METHOD 06/07/2025 1:03 PM [facility] Chloride 106 96 - 110 mmol/L LAB CHEMISTRY METHOD 06/07/2025 1:03 PM [facility] CO2 30 21 - 32 mmol/L LAB CHEMISTRY METHOD 06/07/2025 1:03 PM [facility] Anion Gap 3 3 - 11 LAB CHEMISTRY METHOD 06/07/2025 1:03 PM [facility] Glucose 82 70 - 100 mg/dL LAB CHEMISTRY METHOD 06/07/2025 1:03 PM [facility] BUN 12 5 - 25 mg/dL LAB CHEMISTRY METHOD 06/07/2025 1:03 PM [facility] Creatinine 1.07 0.70 - 1.30 mg/dL LAB CHEMISTRY METHOD 06/07/2025 1:03 PM [facility] eGFR 77 >=60 mL/min/1. 73m2 LAB CHEMISTRY METHOD 06/07/2025 1:03 PM [facility] Comment:Calculation based on the Chronic Kidney Disease Epidemiology Collaboration (CKD-EPI) equation refit without adjustment for race. BUN/Creatinine Ratio 11.2 LAB CHEMISTRY METHOD 06/07/2025 1:03 PM [facility] Calcium 9.0 8.5 - 10.5 mg/dL LAB CHEMISTRY METHOD 06/07/2025 1:03 PM [facility] AST (SGOT) 38 10 - 42 unit/L LAB CHEMISTRY METHOD 06/07/2025 1:03 PM [facility] ALT (SGPT) 43 10 - 60 unit/L LAB CHEMISTRY METHOD 06/07/2025 1:03 PM EDT [facility] Alkaline Phosphatase 81 42 - 121 unit/L LAB CHEMISTRY METHOD 06/07/2025 1:03 PM EDT [facility] Total Protein 7.6 6.0 - 8.0 g/dL LAB CHEMISTRY METHOD 06/07/2025 1:03 PM EDT [facility] Albumin 4.2 3.2 - 5.0 g/dL LAB CHEMISTRY METHOD 06/07/2025 1:03 PM EDT [facility] Total Bilirubin 0.5 0.0 - 1.4 mg/dL LAB CHEMISTRY METHOD 06/07/2025 1:03 PM EDT [facility] Blood Venous blood specimen / Unknown Venipuncture / Unknown 06/07/2025 10:35 AM EDT 06/07/2025 10:35 AM EDT us Terry Nguyen MD LAB BLOOD ORDERABLES Final Resu lt [facility] [address] [place] [address], * XR Shoulder 2+ Views Right (06/07/2025 [...] Signed Date: 06/07/2025 11:54 ET Workstation ID: [id number] Transcribed By: Self Edit Transcribed Date: 06/07/2025 [...] Signed Date: 06/07/2025 11:54 ET Workstation ID: [id number] Transcribed By: Self Edit Transcribed Date: 06/07/2025 11:49 ET us Terry Nguyen MD IMG XR PROCEDURES Final Result * XR Foot 3+ Views Right (06/07/2025 10:29 AM EDT) Anatomical Region Laterality Modality Lower Extremities, Foot Right [facility] 06/07/2025 11:4 0 AM EDT Impressions 06/07/2025 11:49 AM EDT Chronic hallux valgus deformity and mild degenerative changes at the first MTP joint. 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
--- OUTSIDE RECORDS SUMMARY | 2025-08-04 15:06 | XMS_ITS | Encounter Summary ---
Author Organization [facility] Address [address] [place] [address] Care Team Providers Care Streaming Media Specialist Name Role Phone Terry Nguyen MD Primary Care Provider [phone] Encounter Details Date Type Department Care Team (Late st Contact Info) Description 09/22/2024 Lab Requisition [facility] - Main Lab 299 [facility] [place] [address] Abram Magana MD 36[address] [facility] 103 [place] [phone] Malignant neoplasm of prostate (CMS/HCC V24, CMS/HCC [...] AM EST Office Visit Orthopedic Surgery - [place] 250 175 [facility] 250 [place] [address] Payam Sam, DPM 175 [facility] 250 [place] [address] 09/23/2025 8:50 AM EST Office Visit Gastroenterology - 299 [place] 299 [facility] 419 [place] [address] Aydee Shannon PA [address] [address] 12/27/2025 9:30 AM EDT Office Visit Adult Medicine [facility] 444 [place], [place] [phone] Terry Nguyen MD 444 [place], [place] documented as of this encounter Procedures Procedure Name Priority Date/Time Associated Diagnosis Comments PROSTATE SPECIFIC ANTIGEN DIAGNOSTIC Routine 09/22/2024 10:53 AM EST Malignant neoplasm of prostate (CMS/HCC) documented in this encounter Results * Prostate specific antigen diagnostic (09/22/2024 10:53 AM EST) PSA <0.06 0.00 - 4.00 ng/mL LAB CHEMISTRY METHOD 09/22/2024 4:40 PM EST [facility] Blood Venous blood specimen / Unknown 09/22/2024 10:53 AM EST 09/22/2024 1:18 PM EST Narrative [facility] - 09/22/2024 4:40 PM EST The Siemens Advia Centaur Chemiluminescent Immunoassay is used. Results obtained with different assay methods or kits cannot be used interchangeably. Results cannot be interpreted as absolute evidence of the presence or absence of malignant disease. us Abram Magana MD LAB BLOOD ORDERABLES Final Resu lt [facility] 299 [place] [address], [place] [phone] documented in this encounter Visit Diagnoses Diagnosis Malignant neoplasm of prostate (CMS/HCC V24, CMS/HCC V28) Malignant neoplasm of prostate documented in this encounter Care Teams Streaming Media Specialist Relationship Specialty Start Date End Date Terry Nguyen MD 4 [place] [address] PCP - General Internal Medicine 12/01/15 documented as of this encounter
== END 2025-08-04 08:01 | disposition home or self-care (01) ==
LOC: HO.HOS 07:35
PROVIDERS: PCP Internal Medicine; Visit Provider Orthopaedic Surgery
DX: M75.101 Unspecified rotator cuff tear or rupture of right shoulder, not specified as traumatic (principal)
CPT/HCPCS: 99213; G2211

== ENCOUNTER → 2025-08-04 07:44 | Outpatient (BNV) | payer OTHER, SELFPAY | PROVIDERS: Visit Provider Radiology Diagnostic Ultrasound | DX: M19.011 Primary osteoarthritis, right shoulder (principal) | CPT/HCPCS: 73030 ==

== ENCOUNTER 2025-08-04 09:07 | Outpatient (REF) | payer OTHER, SELFPAY ==
--- NOTE | ~2025-08-04 | XR_ITS ---
EXAMINATION: XR SHOULDER, RIGHT CLINICAL INFORMATION: M25.511 - Pain in right shoulder COMPARISON: None available. TECHNIQUE: Two views of the right shoulder. FINDINGS: Mild acromioclavicular arthritis. No significant glenohumeral joint space narrowing. No visible acute fracture or dislocation. No abnormal soft tissue calcification. No suspicious findings visualized lung. XR/XR shoulder RT min 2V IMPRESSION: Mild acromioclavicular arthritis Electronically signed by: Delon Olivares MD 08/04/2025 03:51 PM EST
--- OUTSIDE RECORDS SUMMARY | 2025-08-05 11:20 | XMS_ITS | Encounter Summary ---
Author Organization [facility] Address [address] [place] [address] Care Team Providers Care Histotechnician Name Role Phone Terry Nguyen MD Primary Care Provider [phone] Encounter Details Date Type Department Care Team (Late st Contact Info) Description 09/22/2024 Lab Requisition [facility] - Main Lab 299 [facility] [place] [address] Abram Magana MD 3640 [facility] 103 [place] [phone] Malignant neoplasm of prostate (CMS/HCC V24, CMS/HCC [...] AM EST Office Visit Orthopedic Surgery - [place] [address] [facility] 250 [place] [address] Payam Sam, DPM 175 [facility] 250 [place] [address] 09/23/2025 8:50 AM EST Office Visit Gastroenterology - [address] [facility] 419 [place] [address] Aydee Shannon PA [address] [address] 12/27/2025 9:30 AM EDT Office Visit Adult Medicine [facility] 444 [place], [place] [phone] Terry Nguyen MD 444 [place], [place] documented as of this encounter Procedures Procedure Name Priority Date/Time Associated Diagnosis Comments PROSTATE SPECIFIC ANTIGEN DIAGNOSTIC Routine 09/22/2024 10:53 AM EST Malignant neoplasm of prostate (CMS/HCC) documented in this encounter Results * Prostate specific antigen diagnostic (09/22/2024 10:53 AM EST) PSA <0.06 0.00 - 4.00 ng/mL LAB CHEMISTRY METHOD 09/22/2024 4:40 PM EST [facility] Blood Venous blood specimen / Unknown 09/22/2024 10:53 AM EST 09/22/2024 1:18 PM EST Narrative [facility] - 09/22/2024 4:40 PM EST The Siemens Advia Centaur Chemiluminescent Immunoassay is used. Results obtained with different assay methods or kits cannot be used interchangeably. Results cannot be interpreted as absolute evidence of the presence or absence of malignant disease. us Abram Magana MD LAB BLOOD ORDERABLES Final Resu lt [facility] 299 [place] [address], [place] [phone] documented in this encounter Visit Diagnoses Diagnosis Malignant neoplasm of prostate (CMS/HCC V24, CMS/HCC V28) Malignant neoplasm of prostate documented in this encounter Care Teams Histotechnician Relationship Specialty Start Date End Date Terry Nguyen MD 4 [place] [address] PCP - General Internal Medicine 12/01/15 documented as of this encounter
--- OUTSIDE RECORDS SUMMARY | 2025-08-05 11:20 | XMS_ITS | Clinical Summary ---
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 Encounters Date Type Department Care Team Description 07/12/2025 10:45 AM EDT Consult Orthopedic Surgery - [place] [address] [place] [address] 250 [place] [phone] Payam Sam, DPM Metatarsalgia of right foot (Primary Dx); Acquired hallux valgus of right foot; Acquired hammer toe of right foot; Tendinitis of right ankle 06/21/2025 Telephone Adult Medicine [address] [phone] Marylu De La Cruz [place] 06/08/2025 Telephone Adult Medicine [address] [phone] Terry Nguyen MD 06/08/2025 Telephone [facility] [address] [place] [address] Terry Nguyen MD 06/07/2025 10:15 AM EDT - 06/07/2025 11:59 PM EDT Hospital Encounter [address] [phone] Chronic right shoulder pain Discharge Disposition: Home or Self Care 06/07/2025 10:15 AM EDT - 06/07/2025 11:59 PM EDT Hospital Encounter [address] [phone] Toe deformity, right Discharge Disposition: Home or Self Care 06/07/2025 10:00 AM EDT Office Visit Adult Medicine [address] [phone] Terry Ngueyn MD Pure hypercholesterolemia (Primary Dx); Encounter for long-term (current) use of medications; Chronic right shoulder pain; Toe deformity, right; Prostate cancer ([facility] V24, [facility] V28) from Last 3 Months Immunizations Immunization [...] Date Site/Laterality Comments OTHER SURGICAL HISTORY PROCEDURE: [place] ARTHRS AID RPR LES/TALAR DOME FX/TIBL PLAFOND [...] AM EST Office Visit Orthopedic Surgery - [place] [address] [phone] Payam Sam, DPM [address] [address] 09/23/2025 8:50 AM EST Office Visit Gastroenterology - [address] [phone] Aydee Shannon PA [address] [address] 12/27/2025 9:30 AM EDT Office Visit Adult Medicine [address] [phone] Terry Nguyen MD [address] [place] [address] Health Maintenance Due Date Last Done Comments [...] LAB CHEMISTRY METHOD 06/07/2025 1:03 PM EDT [facility] Triglycerides 58 0 - 150 mg/dL LAB CHEMISTRY METHOD 06/07/2025 1:03 PM EDT [facility] HDL 77 >=40 mg/dL LAB CHEMISTRY METHOD 06/07/2025 1:03 PM T [facility] LDL Calculated 123(H) 0 - 100 mg/dL LAB CHEMISTRY METHOD 06/07/2025 1:03 PM EDT [facility] Comment:Estimated LDL Calcul ated using equation: Total cholesterol - HDL cholesterol - (Triglycerides/5) VLDL Cholesterol Derrick 11.6 mg/dL LAB CHEMISTRY METHOD 06/07/2025 1:03 PM EDT [facility] Non HDL Chol. (LDL+VLDL) 135 <145 mg/dL LAB CHEMISTRY METHOD 06/07/2025 1:03 PM T [facility] Chol/HDL Ratio 2.8 0.0 - 4.4 LAB CHEMISTRY METHOD 06/07/2025 1:03 PM T [facility] Blood Venous blood specimen / Unknown Venipuncture / Unknown 06/07/2025 10:35 AM EDT 06/07/2025 10:35 AM EDT us Terry Nguyen MD LAB BLOOD ORDERABLES Final Resu lt [facility] [address] [place] [address], * Comprehensive metabolic panel (06/07/2025 10:35 AM EDT) Sodium 139 133 - 145 mmol/L LAB CHEMISTRY METHOD 06/07/2025 1:03 PM [facility] Potassium 4.3 3.5 - 5.5 mmol/L LAB CHEMISTRY METHOD 06/07/2025 1:03 PM [facility] Chloride 106 96 - 110 mmol/L LAB CHEMISTRY METHOD 06/07/2025 1:03 PM [facility] CO2 30 21 - 32 mmol/L LAB CHEMISTRY METHOD 06/07/2025 1:03 PM [facility] Anion Gap 3 3 - 11 LAB CHEMISTRY METHOD 06/07/2025 1:03 PM [facility] Glucose 82 70 - 100 mg/dL LAB CHEMISTRY METHOD 06/07/2025 1:03 PM [facility] BUN 12 5 - 25 mg/dL LAB CHEMISTRY METHOD 06/07/2025 1:03 PM [facility] Creatinine 1.07 0.70 - 1.30 mg/dL LAB CHEMISTRY METHOD 06/07/2025 1:03 PM [facility] eGFR 77 >=60 mL/min/1. 73m2 LAB CHEMISTRY METHOD 06/07/2025 1:03 PM [facility] Comment:Calculation based on the Chronic Kidney Disease Epidemiology Collaboration (CKD-EPI) equation refit without adjustment for race. BUN/Creatinine Ratio 11.2 LAB CHEMISTRY METHOD 06/07/2025 1:03 PM [facility] Calcium 9.0 8.5 - 10.5 mg/dL LAB CHEMISTRY METHOD 06/07/2025 1:03 PM [facility] AST (SGOT) 38 10 - 42 unit/L LAB CHEMISTRY METHOD 06/07/2025 1:03 PM [facility] ALT (SGPT) 43 10 - 60 unit/L LAB CHEMISTRY METHOD 06/07/2025 1:03 PM EDT [facility] Alkaline Phosphatase 81 42 - 121 unit/L LAB CHEMISTRY METHOD 06/07/2025 1:03 PM EDT [facility] Total Protein 7.6 6.0 - 8.0 g/dL LAB CHEMISTRY METHOD 06/07/2025 1:03 PM EDT [facility] Albumin 4.2 3.2 - 5.0 g/dL LAB CHEMISTRY METHOD 06/07/2025 1:03 PM EDT [facility] Total Bilirubin 0.5 0.0 - 1.4 mg/dL LAB CHEMISTRY METHOD 06/07/2025 1:03 PM EDT [facility] Blood Venous blood specimen / Unknown Venipuncture / Unknown 06/07/2025 10:35 AM EDT 06/07/2025 10:35 AM EDT us Terry Nguyen MD LAB BLOOD ORDERABLES Final Resu lt [facility] [address] [place] [address], * XR Shoulder 2+ Views Right (06/07/2025 [...] Signed Date: 06/07/2025 11:54 ET Workstation ID: [id number] Transcribed By: Self Edit Transcribed Date: 06/07/2025 [...] Signed Date: 06/07/2025 11:54 ET Workstation ID: [id number] Transcribed By: Self Edit Transcribed Date: 06/07/2025 11:49 ET us Terry Nguyen MD IMG XR PROCEDURES Final Result * XR Foot 3+ Views Right (06/07/2025 10:29 AM EDT) Anatomical Region Laterality Modality Lower Extremities, Foot Right [facility] 06/07/2025 11:4 0 AM EDT Impressions 06/07/2025 11:49 AM EDT Chronic hallux valgus deformity and mild degenerative changes at the first MTP joint. 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
== END 2025-08-04 09:08 | disposition home or self-care (01) ==
LOC: HO.HOSX 09:07
PROVIDERS: Visit Provider Orthopaedic Surgery
DX: M75.101 Unspecified rotator cuff tear or rupture of right shoulder, not specified as traumatic (principal)
CPT/HCPCS: 73030; 99212

== ENCOUNTER 2025-08-09 08:38 | Outpatient (AMB) | payer OTHER, SELFPAY ==
--- NOTE | 2025-08-09 08:59 | A.OFFVIS_ITS ---
Vital Signs 08/09/25 09:00 Height 6 ft Weight 164 lb BMI 22.2 Intake Visit Reasons: R basal joint inj Intake Note: Foster is a 65 year old left hand dominant male who presents today for a follow up of his Bilateral CMC Joint Arthritis. He was given a Left Basal Joint injection at his last visit. 07/23/25. He would like a Right Basal Joint injection today. Allergies No Known Allergies Allergy (Verified 08/09/25 09:00) HPI HPI R basal joint inj: Details: Foster is a 65 year old left hand dominant male who presents today for a follow up of his Bilateral CMC Joint Arthritis. He was given a Left Basal Joint injection at his last visit. 07/23/25, and reports tremendous amounts of relief from this injection. Denies any active ongoing pain in the left basal joint. He would like a Right Basal Joint injection today. 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 Review of Systems Const All systems reviewed & are unremarkable except as noted in HPI and below Physical Exam Vital Signs: BMI result Body Mass Index 22.2 Office Procedures Joint Inj/Aspir; Non-Pain Clin Joint Injection/Drain Prep: site was prepped using aseptic technique and injection warnings given Procedure: The patient tolerated the procedure well, but had some pain with the injection and there was some relief with the local anesthesia Elbows, Wrist, Hands, Hand injection Medium joint : Right Hand Coding Procedure code (CPT) selection complete Assessment & Plan Assessment & Plan (1) Arthritis of carpometacarpal (CMC) joint of both thumbs: Code(s): M18.0 - Bilateral primary osteoarthritis of first carpometacarpal joints Category: Medical Plan 1. Right basal joint arthritis Patient would like to proceed with steroid injection at this time The risks and benefits of a steroid injection including but not limited to risk of damage to blood vessels, nerve, tendon, infection, skin bleaching, persistent or worsening pain, and failure to improve symptoms were discussed with the patient and they wish to proceed with the steroid injection. Once consent was obtained the skin over the dorsum of the right basal joint was sterilely prepped. The joint was then injected with a combination of 40 mg dexamethasone and 1% plain Lidocaine. The patient appears to have tolerated the procedure well and with no complications. He had good early relief before leaving clinic today. He knows that they may not have another steroid injection into this joint for least 4 months. 2. Left basal joint arthritis Status post injection Date of injection 07/23/2025 Patient reports complete symptomatic relief status post injection Patient is advised this is a minimum of 4 months before we can administer another injection Patient understands this and is amenable to this plan Follow-up as needed with any acute concerns Coding Level of Care Code Procedure Only Diagnoses Arthritis of carpometacarpal (CMC) joint of both thumbs M18.0 CPT Codes Elbows, Wrist, Hands, - Hand injection Medium joint [address]63[address]: Right Hand ([id number])
--- OUTSIDE RECORDS SUMMARY | 2025-08-09 08:59 | XMS_ITS | Clinical Summary ---
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 Encounters Date Type Department Care Team Description 07/12/2025 10:45 AM EDT Consult Orthopedic Surgery - [place] [address] [place] [address] 250 [place] [phone] Payam Sam, DPM Metatarsalgia of right foot (Primary Dx); Acquired hallux valgus of right foot; Acquired hammer toe of right foot; Tendinitis of right ankle 06/21/2025 Telephone Adult Medicine [address] [phone] Marylu De La Cruz [place] 06/08/2025 Telephone Adult Medicine [address] [phone] Terry Nguyen MD 06/08/2025 Telephone [facility] [address] [place] [phone] Terry Nguyen MD 06/07/2025 10:15 AM EDT - 06/07/2025 11:59 PM EDT Hospital Encounter [address] [phone] Chronic right shoulder pain Discharge Disposition: Home or Self Care 06/07/2025 10:15 AM EDT - 06/07/2025 11:59 PM EDT Hospital Encounter [address] [phone] Toe deformity, right Discharge Disposition: Home or Self Care 06/07/2025 10:00 AM EDT Office Visit Adult Medicine [address] [phone] Terry Nguyen MD Pure hypercholesterolemia (Primary Dx); Encounter for long-term (current) use of medications; Chronic right shoulder pain; Toe deformity, right; Prostate cancer ([facility] V24, [facility] V28) from Last 3 Months Immunizations Immunization [...] Date Site/Laterality Comments OTHER SURGICAL HISTORY PROCEDURE: [place] ARTHRS AID RPR LES/TALAR DOME FX/TIBL PLAFOND [...] AM EST Office Visit Orthopedic Surgery - [place] [address] [phone] Payam Sam, DPM [address] [phone] 09/23/2025 8:50 AM EST Office Visit Gastroenterology - [address] [phone] Aydee Shannon PA [address] [address] 12/27/2025 9:30 AM EDT Office Visit Adult Medicine [address] [phone] Terry Nguyen MD [address] [place] [address] Health Maintenance Due Date Last Done Comments [...] LAB CHEMISTRY METHOD 06/07/2025 1:03 PM EDT [facility] Triglycerides 58 0 - 150 mg/dL LAB CHEMISTRY METHOD 06/07/2025 1:03 PM EDT [facility] HDL 77 >=40 mg/dL LAB CHEMISTRY METHOD 06/07/2025 1:03 PM T [facility] LDL Calculated 123(H) 0 - 100 mg/dL LAB CHEMISTRY METHOD 06/07/2025 1:03 PM EDT [facility] Comment:Estimated LDL Calcul ated using equation: Total cholesterol - HDL cholesterol - (Triglycerides/5) VLDL Cholesterol Derrick 11.6 mg/dL LAB CHEMISTRY METHOD 06/07/2025 1:03 PM EDT [facility] Non HDL Chol. (LDL+VLDL) 135 <145 mg/dL LAB CHEMISTRY METHOD 06/07/2025 1:03 PM T [facility] Chol/HDL Ratio 2.8 0.0 - 4.4 LAB CHEMISTRY METHOD 06/07/2025 1:03 PM T [facility] Blood Venous blood specimen / Unknown Venipuncture / Unknown 06/07/2025 10:35 AM EDT 06/07/2025 10:35 AM EDT us Terry Nguyen MD LAB BLOOD ORDERABLES Final Resu lt [facility] [address] [place] [address], * Comprehensive metabolic panel (06/07/2025 10:35 AM EDT) Sodium 139 133 - 145 mmol/L LAB CHEMISTRY METHOD 06/07/2025 1:03 PM [facility] Potassium 4.3 3.5 - 5.5 mmol/L LAB CHEMISTRY METHOD 06/07/2025 1:03 PM [facility] Chloride 106 96 - 110 mmol/L LAB CHEMISTRY METHOD 06/07/2025 1:03 PM [facility] CO2 30 21 - 32 mmol/L LAB CHEMISTRY METHOD 06/07/2025 1:03 PM [facility] Anion Gap 3 3 - 11 LAB CHEMISTRY METHOD 06/07/2025 1:03 PM [facility] Glucose 82 70 - 100 mg/dL LAB CHEMISTRY METHOD 06/07/2025 1:03 PM [facility] BUN 12 5 - 25 mg/dL LAB CHEMISTRY METHOD 06/07/2025 1:03 PM [facility] Creatinine 1.07 0.70 - 1.30 mg/dL LAB CHEMISTRY METHOD 06/07/2025 1:03 PM [facility] eGFR 77 >=60 mL/min/1. 73m2 LAB CHEMISTRY METHOD 06/07/2025 1:03 PM [facility] Comment:Calculation based on the Chronic Kidney Disease Epidemiology Collaboration (CKD-EPI) equation refit without adjustment for race. BUN/Creatinine Ratio 11.2 LAB CHEMISTRY METHOD 06/07/2025 1:03 PM [facility] Calcium 9.0 8.5 - 10.5 mg/dL LAB CHEMISTRY METHOD 06/07/2025 1:03 PM [facility] AST (SGOT) 38 10 - 42 unit/L LAB CHEMISTRY METHOD 06/07/2025 1:03 PM [facility] ALT (SGPT) 43 10 - 60 unit/L LAB CHEMISTRY METHOD 06/07/2025 1:03 PM EDT [facility] Alkaline Phosphatase 81 42 - 121 unit/L LAB CHEMISTRY METHOD 06/07/2025 1:03 PM EDT [facility] Total Protein 7.6 6.0 - 8.0 g/dL LAB CHEMISTRY METHOD 06/07/2025 1:03 PM EDT [facility] Albumin 4.2 3.2 - 5.0 g/dL LAB CHEMISTRY METHOD 06/07/2025 1:03 PM EDT [facility] Total Bilirubin 0.5 0.0 - 1.4 mg/dL LAB CHEMISTRY METHOD 06/07/2025 1:03 PM EDT [facility] Blood Venous blood specimen / Unknown Venipuncture / Unknown 06/07/2025 10:35 AM EDT 06/07/2025 10:35 AM EDT us Terry Nguyen MD LAB BLOOD ORDERABLES Final Resu lt [facility] [address] [place] [address], * XR Shoulder 2+ Views Right (06/07/2025 [...] Signed Date: 06/07/2025 11:54 ET Workstation ID: [id number] Transcribed By: Self Edit Transcribed Date: 06/07/2025 [...] Signed Date: 06/07/2025 11:54 ET Workstation ID: [id number] Transcribed By: Self Edit Transcribed Date: 06/07/2025 11:49 ET us Terry Nguyen MD IMG XR PROCEDURES Final Result * XR Foot 3+ Views Right (06/07/2025 10:29 AM EDT) Anatomical Region Laterality Modality Lower Extremities, Foot Right [facility] 06/07/2025 11:4 0 AM EDT Impressions 06/07/2025 11:49 AM EDT Chronic hallux valgus deformity and mild degenerative changes at the first MTP joint. 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
[2025-08-09 09:00] VITALS: BMI 22.2
--- OUTSIDE RECORDS SUMMARY | 2025-08-09 09:00 | XMS_ITS | Encounter Summary ---
Author Organization [facility] Address [address] [place] [address] Care Team Providers Care Glue Machine Operator Name Role Phone Terry Nguyen MD Primary Care Provider [phone] Encounter Details Date Type Department Care Team (Late st Contact Info) Description 09/22/2024 Lab Requisition [facility] - Main Lab [address] [facility] [place] [address] Abram Magana MD [address] [facility] [address] [place] [phone] Malignant neoplasm of prostate (CMS/HCC V24, CMS/HCC [...] AM EST Office Visit Orthopedic Surgery - [place] 250 175 [facility] [address] [place] [address] Payam Sam, DPM 175 [facility] [address] [place] [address] 09/23/2025 8:50 AM EST Office Visit Gastroenterology - 299 [place] 299 [facility] [address] [place] [address] Aydee Shannon PA [address] [address] 12/27/2025 9:30 AM EDT Office Visit Adult Medicine [facility] [address] [place], [place] [phone] Terry Nguyen MD 444 [place], [place] documented as of this encounter Procedures Procedure Name Priority Date/Time Associated Diagnosis Comments PROSTATE SPECIFIC ANTIGEN DIAGNOSTIC Routine 09/22/2024 10:53 AM EST Malignant neoplasm of prostate (CMS/HCC) documented in this encounter Results * Prostate specific antigen diagnostic (09/22/2024 10:53 AM EST) PSA <0.06 0.00 - 4.00 ng/mL LAB CHEMISTRY METHOD 09/22/2024 4:40 PM EST [facility] Blood Venous blood specimen / Unknown 09/22/2024 10:53 AM EST 09/22/2024 1:18 PM EST Narrative [facility] - 09/22/2024 4:40 PM EST The Siemens Advia Centaur Chemiluminescent Immunoassay is used. Results obtained with different assay methods or kits cannot be used interchangeably. Results cannot be interpreted as absolute evidence of the presence or absence of malignant disease. us Abram Magana MD LAB BLOOD ORDERABLES Final Resu lt [facility] [address] [place] [address], [place] [phone] documented in this encounter Visit Diagnoses Diagnosis Malignant neoplasm of prostate (CMS/HCC V24, CMS/HCC V28) Malignant neoplasm of prostate documented in this encounter Care Teams Glue Machine Operator Relationship Specialty Start Date End Date Terry Nguyen MD [address] [place] [address] PCP - General Internal Medicine 12/01/15 documented as of this encounter
== END 2025-08-09 09:02 | disposition home or self-care (01) ==
LOC: HO.HOS 08:39
PROVIDERS: PCP Internal Medicine
DX: M18.11 Unilateral primary osteoarthritis of first carpometacarpal joint, right hand (principal)
CPT/HCPCS: 20526

== ENCOUNTER → 2025-08-09 08:38 | Outpatient (BNVA) | payer BC, SELFPAY | PROVIDERS: PCP Internal Medicine | DX: M18.11 Unilateral primary osteoarthritis of first carpometacarpal joint, right hand (principal) | CPT/HCPCS: 20526; J1100; J2003 ==